=== PATIENT | female | born 1995 | race Caucasian/White ===

== ENCOUNTER 2016-08-22 14:37 | Emergency (ER) | payer OTHER, SELFPAY ==
[~2016-08-22 14:37] MED LIST: /AUGM875TA OR; /CELE20CA OR; /ONDA4TA OR; ACET65TA OR; COLA100C2 OR; NO HOME MEDS; PERC5TAB8 OR; PERC7.5T8 OR; ZOFR8TAB OR
--- NOTE | 2016-08-22 15:56 | EDDOCDS ---
Nurse's Notes [facility] Name: Amanda Lopez Age: 21 yrs Sex: Female : 1995 Arrival Date: 08/22/2016 Time: 14:37 Bed Triage 1 Private MD: NO PRIMARY PHYSICIAN, . Diagnosis: Acute pharyngitis-exudative Presentation: 08/22 14:48 Presenting complaint: Patient states: Pt presents with sore throat body aches x 4-3 dls days also her hands and feet are swelling and go numb. Risk factors: Stridor is not present. Drooling is not present. Shortness of breath is not present. Cellulitis is not present. Adult Sepsis Screening: The patient does not have new or worsening altered mentation. Patient's respiratory rate is less than 22. Systolic blood pressure is greater than 100. Patient has a qSOFA score of 0- Negative Sepsis Screen. Suicide/Homicide risk assessment- the patient denies having any suicidal and/or homicidal ideations and does not present with any other emotional, behavioral or mental health complaints. 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 Transition of care: patient was not received from another setting of care. 14:48 Acuity: MYKE Level 4 dls 14:48 Method Of Arrival: Walkin/Carried/Asstd dls Triage Assessment: 14:50 General: Appears in no apparent distress, well developed, well nourished, well groomed, dls Behavior is cooperative. Pain: Pain currently is 7 out of 10 on a pain scale. HIV screening NA for this visit Offered previously. 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 Mirena 20 mcg/24 hr (5 years) intrauterine IUD - PMHx: Hepatitis C; heroin abuse; - PSHx: right ankle; Appendectomy; - Social history: Smoking status: Patient uses tobacco products, light tobacco smoker. Patient uses No barriers to communication noted, The patient speaks fluent Georgian. - : The pt / caregiver states he / she is not on anticoagulants. Home medication list is obtained from the patient. - Exposure Risk Screening:: None identified. Vital Signs: 14:39 BP 131 / 70; Pulse 89; Resp 18 S; Temp 99.1(O); Pulse Ox 100% on R/A; Weight 61.23 kg dd6 (R); Height 5 ft. 3 in. (160.02 cm) (R); 14:39 Body Mass Index 23.91 (61.23 kg, 160.02 cm) dd6 Vitals: 14:39 Log In Time: August 22, 2016 at 14:37. dd6 15:50 Strep Screen is obtained and tested: Negative, a GATSNEG culture is ordered in [facility] and sent. ED Course: 14:39 Patient visited by Cedrick Banks PCA. dd6 14:39 NO PRIMARY PHYSICIAN, . is Private Physician. dd6 14:39 Patient moved to Waiting dd6 14:40 Patient moved to Pre RCE dd6 14:49 Triage Initiated dls 15:20 Anibal Abdul PA-C is PHCP. ar2 15:20 Chanel Bello MD is Attending Physician. ar2 15:36 Patient moved to Triage 1 ct3 15:37 Patient visited by Anibal Abdul PA-C. ar2 15:50 [facility] is Referral Physician. ar2 Order Results: There are currently no results for this order. Outcome: 15:50 Discharge ordered by Provider. ar2 15:55 Patient left the ED. [facility] Signatures: Mary Camacho RN RN kcs Sapna Stout RN RN dls Anibal Abdul PA-C PA-C ar2 Cedrick Banks, TELMA SURVEILLANCE SENSOR OFFICER dd6 Gloria Varghese, SURVEILLANCE SENSOR OFFICER SURVEILLANCE SENSOR OFFICER ct3 MTDD
--- NOTE | 2016-08-22 15:56 | EDDOCDS ---
Physician Documentation [facility] Name: Amanda Lopez Age: 21 yrs Sex: Female : 1995 Arrival Date: 08/22/2016 Time: 14:37 Bed Triage 1 Private MD: NO PRIMARY PHYSICIAN, . Disposition: 08/22/16 15:50 Discharged to Home/Self Care. Impression: Acute pharyngitis - exudative. - Condition is Stable. - Discharge Instructions: Pharyngitis, Salt Water Gargle. - Prescriptions for Ibuprofen 600 mg Oral Tablet - take 1 tablet by ORAL route every 6 hours As needed take with food; 30 tablet. Keflex 500 mg Oral Capsule - take 1 capsule by ORAL route every 12 hours for 10 days; 20 capsule. - Medication Reconciliation, Local Pharmacy Hours form. - Follow up: Emergency Department; When: As needed; Reason: Fever > 102F, Trouble breathing, Worsening of conditions. [facility]: [facility] ; When: Call to arrange an appointment; Reason: Recheck today's complaints, To establish care. - Problem is new. - Symptoms are unchanged. Historical: - Allergies: no known allergies; - Home Meds: 1. Mirena 20 mcg/24 hr (5 years) intrauterine IUD - PMHx: Hepatitis C; heroin abuse; - PSHx: right ankle; Appendectomy; - Social history: Smoking status: Patient uses tobacco products, light tobacco smoker. Patient uses No barriers to communication noted, The patient speaks fluent Maltese. - : The pt / caregiver states he / she is not on anticoagulants. Home medication list is obtained from the patient. - Exposure Risk Screening:: None identified. 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 3 in. (160.02 cm) (R); 14:39 Body Mass Index 23.91 (61.23 kg, 160.02 cm) dd6 MDM: 15:20 Strep Screen, Nursing ordered. ar2 15:50 GATS (NEGATIVE STREP SCREEN) Ordered. EDMS Signatures: Dispatcher [employer] EDSamm Thompsoncey, RN RN kcs Sapna Stout RN RN dls Anibal Abdul, RASHAAD PAMaxine ar2 IBISD
--- NOTE | 2016-08-24 16:56 | EDDOCDS ---
Nurse's Notes [facility] Name: Amanda Lopez Age: 21 yrs Sex: Female : 1995 Arrival Date: 08/22/2016 Time: 14:37 Bed Triage 1 Private MD: NO PRIMARY PHYSICIAN, . Diagnosis: Acute pharyngitis-exudative Presentation: 08/22 14:48 Presenting complaint: Patient states: Pt presents with sore throat body aches x 4-3 dls days also her hands and feet are swelling and go numb. Risk factors: Stridor is not present. Drooling is not present. Shortness of breath is not present. Cellulitis is not present. Adult Sepsis Screening: The patient does not have new or worsening altered mentation. Patient's respiratory rate is less than 22. Systolic blood pressure is greater than 100. Patient has a qSOFA score of 0- Negative Sepsis Screen. Suicide/Homicide risk assessment- the patient denies having any suicidal and/or homicidal ideations and does not present with any other emotional, behavioral or mental health complaints. Status: Patient is not a passenger service supervisor or dependent. Transition of care: patient was not received from another setting of care. 14:48 Acuity: MYKE Level 4 dls 14:48 Method Of Arrival: Walkin/Carried/Asstd dls Triage Assessment: 14:50 General: Appears in no apparent distress, well developed, well nourished, well groomed, dls Behavior is cooperative. Pain: Pain currently is 7 out of 10 on a pain scale. HIV screening NA for this visit Offered previously. 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 Mirena 20 mcg/24 hr (5 years) intrauterine IUD - PMHx: Hepatitis C; heroin abuse; - PSHx: right ankle; Appendectomy; - Social history: Smoking status: Patient uses tobacco products, light tobacco smoker. Patient uses No barriers to communication noted, The patient speaks fluent Indonesian. - Family history: Not pertinent. - : The pt / caregiver states he / she is not on anticoagulants. Home medication list is obtained from the patient. - Exposure Risk Screening:: None identified. Screenin:50 Screening information is obtained from the patient. Fall risk: No risks identified. kcs Assistance ADL's: requires no assistance with activities of daily living. Abuse/DV Screen: The patient / caregiver reports he/she is: not in a situation that causes fear, pain or injury. Nutritional screening: No deficits noted. Advance Directives: Currently, there is no health care proxy. home support is adequate. Assessment: 15:50 Reassessment: Patient states symptoms have not improved. No drooling, no stridor. kcs General: Appears comfortable, well developed, well nourished, well groomed, Behavior is cooperative, pleasant. Pain: Location: throat. Neurological: Level of Consciousness is awake, alert. Respiratory: Airway is patent Respiratory effort is even, unlabored, Respiratory pattern is regular, symmetrical. Derm: Skin is intact, is healthy with good turgor, Skin is dry, Skin is normal. Vital Signs: 14:39 BP 131 / 70; Pulse 89; Resp 18 S; Temp 99.1(O); Pulse Ox 100% on R/A; Weight 61.23 kg dd6 (R); Height 5 ft. 3 in. (160.02 cm) (R); 14:39 Body Mass Index 23.91 (61.23 kg, 160.02 cm) dd6 Vitals: 14:39 Log In Time: August 22, 2016 at 14:37. dd6 15:50 Strep Screen is obtained and tested: Negative, a GATSNEG culture is ordered in [facility] and sent. ED Course: 14:39 Patient visited by Cedrick Banks PCA. dd6 14:39 NO PRIMARY PHYSICIAN, . is Private Physician. dd6 14:39 Patient moved to Waiting dd6 14:40 Patient moved to Pre RCE dd6 14:49 Triage Initiated dls 15:20 Anibal Abdul PA-C is PHCP. ar2 15:20 Chanel Bello MD is Attending Physician. ar2 15:36 Patient moved to Triage 1 ct3 15:37 Patient visited by Anibal Abdul PA-C. ar2 15:50 [facility] is Referral Physician. ar2 15:50 The patient / caregiver is instructed regarding the plan of care and ED course. kcs 15:50 No IV's were initiated during this patient's visit. No procedures done that require kcs assistance. 16:12 [facility] Payment Agreement was scanned into [employer] and attached to record. jimenez 08/23 06:09 T-Sheet-- Draft Copy was scanned into [employer] and attached to record. brittany Order Results: Lab Order: GATS (NEGATIVE STREP SCREEN); SPEC'M 08/22/16 15:45 Test: GATS CULTURE (NEG STREP SCR); Value: GATS RESULT NEGATIVE FOR STREP PYOGENES (GROUP A); Status: F Test: GATS CULTURE (NEG STREP SCR); Value: ORGANISM 1: STREP AGALACTIAE GROUP B; Status: F Test: GATS CULTURE (NEG STREP SCR); Value: STREP AGALACTIAE GROUP B; Status: F Test: GATS CULTURE (NEG STREP SCR); Value: QUANTITY OF GROWTH MODERATE; Status: F Outcome: 08/22 15:50 Discharge ordered by Provider. ar2 15:50 Discharge Assessment: Patient awake, alert and oriented x 3. No cognitive and/or kcs functional deficits noted. Patient verbalized understanding of disposition instructions. Patient awake and alert. patient administered narcotics - no. The following High Risk Discharge criteria are identified: None. Discharged to home ambulatory. Condition: stable. Discharge instructions given to patient, Instructed on discharge instructions, follow up and referral plans. medication usage, Demonstrated understanding of instructions, medications, Pt was receptive of discharge instructions/ teaching. No special radiology studies were completed. Property sent home with patient. 15:55 Patient left the ED. kcs Signatures: Mary Camacho, RN RN Sapna Browning RN RN Anibal Marino, PA-C PA-Jovani ar2 Cedrick Banks, MANAGER DEPARTMENT MANAGER DEPARTMENT dd6 Gloria Varghese, MANAGER DEPARTMENT MANAGER DEPARTMENT ct3 Viviana Deleon Gabriela gjb Chart Complete MTDD
--- NOTE | 2016-08-24 16:56 | EDDOCDS ---
Physician Documentation [facility] Name: Amanda Lopez Age: 21 yrs Sex: Female : 1995 Arrival Date: 08/22/2016 Time: 14:37 Bed Triage 1 Private MD: NO PRIMARY PHYSICIAN, . Disposition: 08/22/16 15:50 Discharged to Home/Self Care. Impression: Acute pharyngitis - exudative. - Condition is Stable. - Discharge Instructions: Pharyngitis, Salt Water Gargle. - Prescriptions for Ibuprofen 600 mg Oral Tablet - take 1 tablet by ORAL route every 6 hours As needed take with food; 30 tablet. Keflex 500 mg Oral Capsule - take 1 capsule by ORAL route every 12 hours for 10 days; 20 capsule. - Medication Reconciliation, Local Pharmacy Hours form. - Follow up: Emergency Department; When: As needed; Reason: Fever > 102F, Trouble breathing, Worsening of conditions. Follow [facility]: [facility] ; When: Call to arrange an appointment; Reason: Recheck today's complaints, To establish care. - Problem is new. - Symptoms are unchanged. Historical: - Allergies: no known allergies; - Home Meds: 1. Mirena 20 mcg/24 hr (5 years) intrauterine IUD - PMHx: Hepatitis C; heroin abuse; - PSHx: right ankle; Appendectomy; - Social history: Smoking status: Patient uses tobacco products, light tobacco smoker. Patient uses No barriers to communication noted, The patient speaks fluent Bengali. - Family history: Not pertinent. - : The pt / caregiver states he / she is not on anticoagulants. Home medication list is obtained from the patient. - Exposure Risk Screening:: None identified. 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 3 in. (160.02 cm) (R); 14:39 Body Mass Index 23.91 (61.23 kg, 160.02 cm) dd6 MDM: 15:20 Strep Screen, Nursing ordered. ar2 15:50 GATS (NEGATIVE STREP SCREEN) Ordered. EDMS 16:12 [facility] Payment Agreement was scanned into [employer] and attached to record. gjb 16:12 Financial registration complete. gjb 08/23 06:09 T-Sheet-- Draft Copy was scanned into [employer] and attached to record. brittany Signatures: Dispatcher [employer] Mary Jimenez RN RN kcs Scott, Debra, RN RN dls Robertshaw, Aaron, PA-C PA-C ar2 Arel, Amelia Beckett The chart was reviewed and I authenticate all verbal orders and agree with the evaluation and treatment provided.Attachments: 08/22 16:12 [facility] Payment Agreement gjb 08/23 06:09 T-Sheet-- Draft Copy brittany Chart Complete MTDD
--- NOTE | 2016-08-24 16:56 | EDDOCDS ---
Physician Documentation [facility] Name: Amanda Lopez Age: 21 yrs Sex: Female : 1995 Arrival Date: 08/22/2016 Time: 14:37 Bed Triage 1 Private MD: NO PRIMARY PHYSICIAN, . Disposition: 08/22/16 15:50 Discharged to Home/Self Care. Impression: Acute pharyngitis - exudative. - Condition is Stable. - Discharge Instructions: Pharyngitis, Salt Water Gargle. - Prescriptions for Ibuprofen 600 mg Oral Tablet - take 1 tablet by ORAL route every 6 hours As needed take with food; 30 tablet. Keflex 500 mg Oral Capsule - take 1 capsule by ORAL route every 12 hours for 10 days; 20 capsule. - Medication Reconciliation, Local Pharmacy Hours form. - Follow up: Emergency Department; When: As needed; Reason: Fever > 102F, Trouble breathing, Worsening of conditions. Follow [facility]: [facility] ; When: Call to arrange an appointment; Reason: Recheck today's complaints, To establish care. - Problem is new. - Symptoms are unchanged. Historical: - Allergies: no known allergies; - Home Meds: 1. Mirena 20 mcg/24 hr (5 years) intrauterine IUD - PMHx: Hepatitis C; heroin abuse; - PSHx: right ankle; Appendectomy; - Social history: Smoking status: Patient uses tobacco products, light tobacco smoker. Patient uses No barriers to communication noted, The patient speaks fluent Serbian. - Family history: Not pertinent. - : The pt / caregiver states he / she is not on anticoagulants. Home medication list is obtained from the patient. - Exposure Risk Screening:: None identified. 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 3 in. (160.02 cm) (R); 14:39 Body Mass Index 23.91 (61.23 kg, 160.02 cm) dd6 MDM: 15:20 Strep Screen, Nursing ordered. ar2 15:50 GATS (NEGATIVE STREP SCREEN) Ordered. EDMS 16:12 [facility] Payment Agreement was scanned into [employer] and attached to record. gjb 16:12 Financial registration complete. gjb 08/23 06:09 T-Sheet-- Draft Copy was scanned into [employer] and attached to record. brittany Signatures: Dispatcher [employer] Mary Jimenez RN RN kcs Scott, Debra, RN RN dls Robertshaw, Aaron, PA-C PA-C ar2 Arel, Amelia Beckett The chart was reviewed and I authenticate all verbal orders and agree with the evaluation and treatment provided.Attachments: 08/22 16:12 [facility] Payment Agreement gjb 08/23 06:09 T-Sheet-- Draft Copy brittany Chart Complete MTDD
--- NOTE | 2016-08-25 15:30 | EDDOCDS ---
Nurse's Notes [facility] Name: Amanda Lopez Age: 21 yrs Sex: Female : 1995 Arrival Date: 08/22/2016 Time: 14:37 Bed Triage 1 Private MD: NO PRIMARY PHYSICIAN, . Diagnosis: Acute pharyngitis-exudative Presentation: 08/22 14:48 Presenting complaint: Patient states: Pt presents with sore throat body aches x 4-3 dls days also her hands and feet are swelling and go numb. Risk factors: Stridor is not present. Drooling is not present. Shortness of breath is not present. Cellulitis is not present. Adult Sepsis Screening: The patient does not have new or worsening altered mentation. Patient's respiratory rate is less than 22. Systolic blood pressure is greater than 100. Patient has a qSOFA score of 0- Negative Sepsis Screen. Suicide/Homicide risk assessment- the patient denies having any suicidal and/or homicidal ideations and does not present with any other emotional, behavioral or mental health complaints. 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 Transition of care: patient was not received from another setting of care. 14:48 Acuity: MYKE Level 4 dls 14:48 Method Of Arrival: Walkin/Carried/Asstd dls Triage Assessment: 14:50 General: Appears in no apparent distress, well developed, well nourished, well groomed, dls Behavior is cooperative. Pain: Pain currently is 7 out of 10 on a pain scale. HIV screening NA for this visit Offered previously. 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 Mirena 20 mcg/24 hr (5 years) intrauterine IUD - PMHx: Hepatitis C; heroin abuse; - PSHx: right ankle; Appendectomy; - Social history: Smoking status: Patient uses tobacco products, light tobacco smoker. Patient uses No barriers to communication noted, The patient speaks fluent Rwandan. - Family history: Not pertinent. - : The pt / caregiver states he / she is not on anticoagulants. Home medication list is obtained from the patient. - Exposure Risk Screening:: None identified. Screenin:50 Screening information is obtained from the patient. Fall risk: No risks identified. kcs Assistance ADL's: requires no assistance with activities of daily living. Abuse/DV Screen: The patient / caregiver reports he/she is: not in a situation that causes fear, pain or injury. Nutritional screening: No deficits noted. Advance Directives: Currently, there is no health care proxy. home support is adequate. Assessment: 15:50 Reassessment: Patient states symptoms have not improved. No drooling, no stridor. kcs General: Appears comfortable, well developed, well nourished, well groomed, Behavior is cooperative, pleasant. Pain: Location: throat. Neurological: Level of Consciousness is awake, alert. Respiratory: Airway is patent Respiratory effort is even, unlabored, Respiratory pattern is regular, symmetrical. Derm: Skin is intact, is healthy with good turgor, Skin is dry, Skin is normal. Vital Signs: 14:39 BP 131 / 70; Pulse 89; Resp 18 S; Temp 99.1(O); Pulse Ox 100% on R/A; Weight 61.23 kg dd6 (R); Height 5 ft. 3 in. (160.02 cm) (R); 14:39 Body Mass Index 23.91 (61.23 kg, 160.02 cm) dd6 Vitals: 14:39 Log In Time: August 22, 2016 at 14:37. dd6 15:50 Strep Screen is obtained and tested: Negative, a GATSNEG culture is ordered in [facility] and sent. ED Course: 14:39 Patient visited by Cedrick Banks PCA. dd6 14:39 NO PRIMARY PHYSICIAN, . is Private Physician. dd6 14:39 Patient moved to Waiting dd6 14:40 Patient moved to Pre RCE dd6 14:49 Triage Initiated dls 15:20 Anibal Abdul PA-C is PHCP. ar2 15:20 Chanel Bello MD is Attending Physician. ar2 15:36 Patient moved to Triage 1 ct3 15:37 Patient visited by Anibal Abdul PA-C. ar2 15:50 [facility] is Referral Physician. ar2 15:50 The patient / caregiver is instructed regarding the plan of care and ED course. kcs 15:50 No IV's were initiated during this patient's visit. No procedures done that require kcs assistance. 16:12 [facility] [place] Agreement was scanned into [employer] and attached to record. jimenez 08/23 06:09 T-Sheet-- Draft Copy was scanned into [employer] and attached to record. brittany Order Results: Lab Order: GATS (NEGATIVE STREP SCREEN); SPEC'M 08/22/16 15:45 Test: GATS CULTURE (NEG STREP SCR); Value: GATS RESULT NEGATIVE FOR STREP PYOGENES (GROUP A); Status: F Test: GATS CULTURE (NEG STREP SCR); Value: ORGANISM 1: STREP AGALACTIAE GROUP B; Status: F Test: GATS CULTURE (NEG STREP SCR); Value: STREP AGALACTIAE GROUP B; Status: F Test: GATS CULTURE (NEG STREP SCR); Value: QUANTITY OF GROWTH MODERATE; Status: F Outcome: 08/22 15:50 Discharge ordered by Provider. ar2 15:50 Discharge Assessment: Patient awake, alert and oriented x 3. No cognitive and/or kcs functional deficits noted. Patient verbalized understanding of disposition instructions. Patient awake and alert. patient administered narcotics - no. The following High Risk Discharge criteria are identified: None. Discharged to home ambulatory. Condition: stable. Discharge instructions given to patient, Instructed on discharge instructions, follow up and referral plans. medication usage, Demonstrated understanding of instructions, medications, Pt was receptive of discharge instructions/ teaching. No special radiology studies were completed. Property sent home with patient. 15:55 Patient left the ED. kcs Addendum: 08/25/2016 15:28 Narrative: GATS culture results reviewed by NETTIE Rodriguez and no changes made. [facility] Signatures: Mary Camacho RN RN kcs Peters, Mary, RN RN mcp Scott, Debra, RN RN dls Robertshaw, Aaron, PA-C PA-Jovani ar2 Cedrick Banks, ROPER OPERATOR ROPER OPERATOR dd6 Gloria Varghese, ROPER OPERATOR ROPER OPERATOR ct3 Arepedro, Amelia Beckett MTDD
--- NOTE | 2016-08-25 15:30 | EDDOCDS ---
Physician Documentation [facility] Name: Amanda Lopez Age: 21 yrs Sex: Female : 1995 Arrival Date: 08/22/2016 Time: 14:37 Bed Triage 1 Private MD: NO PRIMARY PHYSICIAN, . Disposition: 08/22/16 15:50 Discharged to Home/Self Care. Impression: Acute pharyngitis - exudative. - Condition is Stable. - Discharge Instructions: Pharyngitis, Salt Water Gargle. - Prescriptions for Ibuprofen 600 mg Oral Tablet - take 1 tablet by ORAL route every 6 hours As needed take with food; 30 tablet. Keflex 500 mg Oral Capsule - take 1 capsule by ORAL route every 12 hours for 10 days; 20 capsule. - Medication Reconciliation, Local Pharmacy Hours form. - Follow up: Emergency Department; When: As needed; Reason: Fever > 102F, Trouble breathing, Worsening of conditions. [facility]: [facility] ; When: Call to arrange an appointment; Reason: Recheck today's complaints, To establish care. - Problem is new. - Symptoms are unchanged. Historical: - Allergies: no known allergies; - Home Meds: 1. Mirena 20 mcg/24 hr (5 years) intrauterine IUD - PMHx: Hepatitis C; heroin abuse; - PSHx: right ankle; Appendectomy; - Social history: Smoking status: Patient uses tobacco products, light tobacco smoker. Patient uses No barriers to communication noted, The patient speaks fluent Bengali. - Family history: Not pertinent. - : The pt / caregiver states he / she is not on anticoagulants. Home medication list is obtained from the patient. - Exposure Risk Screening:: None identified. 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 3 in. (160.02 cm) (R); 14:39 Body Mass Index 23.91 (61.23 kg, 160.02 cm) dd6 MDM: 15:20 Strep Screen, Nursing ordered. ar2 15:50 GATS (NEGATIVE STREP SCREEN) Ordered. EDMS 16:12 [facility] Payment Agreement was scanned into [employer] and attached to record. gjb 16:12 Financial registration complete. gjb 08/23 06:09 T-Sheet-- Draft Copy was scanned into [employer] and attached to record. brittany Signatures: Dispatcher [employer] Mary Jimenez RN RN kcs Scott, Debra, RN RN dls Robertshaw, Aaron, PA-C PA-C ar2 Arel, Amelia Beckett The chart was reviewed and I authenticate all verbal orders and agree with the evaluation and treatment provided.Attachments: 08/22 16:12 [facility] INCLUDES THE [facility] Payment Agreement gjb 08/23 06:09 T-Sheet-- Draft Copy brittany MTDD
--- NOTE | 2016-08-25 15:30 | EDDOCDS ---
Physician Documentation [facility] Name: Amanda Lopez Age: 21 yrs Sex: Female : 1995 Arrival Date: 08/22/2016 Time: 14:37 Bed Triage 1 Private MD: NO PRIMARY PHYSICIAN, . Disposition: 08/22/16 15:50 Discharged to Home/Self Care. Impression: Acute pharyngitis - exudative. - Condition is Stable. - Discharge Instructions: Pharyngitis, Salt Water Gargle. - Prescriptions for Ibuprofen 600 mg Oral Tablet - take 1 tablet by ORAL route every 6 hours As needed take with food; 30 tablet. Keflex 500 mg Oral Capsule - take 1 capsule by ORAL route every 12 hours for 10 days; 20 capsule. - Medication Reconciliation, Local Pharmacy Hours form. - Follow up: Emergency Department; When: As needed; Reason: Fever > 102F, Trouble breathing, Worsening of conditions. [facility]: [facility] ; When: Call to arrange an appointment; Reason: Recheck today's complaints, To establish care. - Problem is new. - Symptoms are unchanged. Historical: - Allergies: no known allergies; - Home Meds: 1. Mirena 20 mcg/24 hr (5 years) intrauterine IUD - PMHx: Hepatitis C; heroin abuse; - PSHx: right ankle; Appendectomy; - Social history: Smoking status: Patient uses tobacco products, light tobacco smoker. Patient uses No barriers to communication noted, The patient speaks fluent Czech. - Family history: Not pertinent. - : The pt / caregiver states he / she is not on anticoagulants. Home medication list is obtained from the patient. - Exposure Risk Screening:: None identified. 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 3 in. (160.02 cm) (R); 14:39 Body Mass Index 23.91 (61.23 kg, 160.02 cm) dd6 MDM: 15:20 Strep Screen, Nursing ordered. ar2 15:50 GATS (NEGATIVE STREP SCREEN) Ordered. EDMS 16:12 [facility] Payment Agreement was scanned into [employer] and attached to record. gjb 16:12 Financial registration complete. gjb 08/23 06:09 T-Sheet-- Draft Copy was scanned into [employer] and attached to record. brittany Signatures: Dispatcher [employer] Mary Jimenez RN RN kcs Scott, Debra, RN RN dls Robertshaw, Aaron, PA-C PA-C ar2 Arel, Amelia Beckett The chart was reviewed and I authenticate all verbal orders and agree with the evaluation and treatment provided.Attachments: 08/22 16:12 [facility] Payment Agreement gjb 08/23 06:09 T-Sheet-- Draft Copy brittany MTDD
--- NOTE | 2016-08-25 15:32 | EDDOCDS ---
Nurse's Notes [facility] Name: Amanda Lopez Age: 21 yrs Sex: Female : 1995 Arrival Date: 08/22/2016 Time: 14:37 Bed Triage 1 Private MD: NO PRIMARY PHYSICIAN, . Diagnosis: Acute pharyngitis-exudative Presentation: 08/22 14:48 Presenting complaint: Patient states: Pt presents with sore throat body aches x 4-3 dls days also her hands and feet are swelling and go numb. Risk factors: Stridor is not present. Drooling is not present. Shortness of breath is not present. Cellulitis is not present. Adult Sepsis Screening: The patient does not have new or worsening altered mentation. Patient's respiratory rate is less than 22. Systolic blood pressure is greater than 100. Patient has a qSOFA score of 0- Negative Sepsis Screen. Suicide/Homicide risk assessment- the patient denies having any suicidal and/or homicidal ideations and does not present with any other emotional, behavioral or mental health complaints. Status: Patient is not a director of in service education or dependent. Transition of care: patient was not received from another setting of care. 14:48 Acuity: MYKE Level 4 dls 14:48 Method Of Arrival: Walkin/Carried/Asstd dls Triage Assessment: 14:50 General: Appears in no apparent distress, well developed, well nourished, well groomed, dls Behavior is cooperative. Pain: Pain currently is 7 out of 10 on a pain scale. HIV screening NA for this visit Offered previously. 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 Mirena 20 mcg/24 hr (5 years) intrauterine IUD - PMHx: Hepatitis C; heroin abuse; - PSHx: right ankle; Appendectomy; - Social history: Smoking status: Patient uses tobacco products, light tobacco smoker. Patient uses No barriers to communication noted, The patient speaks fluent Haitian. - Family history: Not pertinent. - : The pt / caregiver states he / she is not on anticoagulants. Home medication list is obtained from the patient. - Exposure Risk Screening:: None identified. Screenin:50 Screening information is obtained from the patient. Fall risk: No risks identified. kcs Assistance ADL's: requires no assistance with activities of daily living. Abuse/DV Screen: The patient / caregiver reports he/she is: not in a situation that causes fear, pain or injury. Nutritional screening: No deficits noted. Advance Directives: Currently, there is no health care proxy. home support is adequate. Assessment: 15:50 Reassessment: Patient states symptoms have not improved. No drooling, no stridor. kcs General: Appears comfortable, well developed, well nourished, well groomed, Behavior is cooperative, pleasant. Pain: Location: throat. Neurological: Level of Consciousness is awake, alert. Respiratory: Airway is patent Respiratory effort is even, unlabored, Respiratory pattern is regular, symmetrical. Derm: Skin is intact, is healthy with good turgor, Skin is dry, Skin is normal. Vital Signs: 14:39 BP 131 / 70; Pulse 89; Resp 18 S; Temp 99.1(O); Pulse Ox 100% on R/A; Weight 61.23 kg dd6 (R); Height 5 ft. 3 in. (160.02 cm) (R); 14:39 Body Mass Index 23.91 (61.23 kg, 160.02 cm) dd6 Vitals: 14:39 Log In Time: August 22, 2016 at 14:37. dd6 15:50 Strep Screen is obtained and tested: Negative, a GATSNEG culture is ordered in [facility] and sent. ED Course: 14:39 Patient visited by Cedrick Banks PCA. dd6 14:39 NO PRIMARY PHYSICIAN, . is Private Physician. dd6 14:39 Patient moved to Waiting dd6 14:40 Patient moved to Pre RCE dd6 14:49 Triage Initiated dls 15:20 Anibal Abdul PA-C is PHCP. ar2 15:20 Chanel Bello MD is Attending Physician. ar2 15:36 Patient moved to Triage 1 ct3 15:37 Patient visited by Anibal Abdul PA-C. ar2 15:50 [facility] is Referral Physician. ar2 15:50 The patient / caregiver is instructed regarding the plan of care and ED course. kcs 15:50 No IV's were initiated during this patient's visit. No procedures done that require kcs assistance. 16:12 [facility] Payment Agreement was scanned into [employer] and attached to record. jimenez 08/23 06:09 T-Sheet-- Draft Copy was scanned into [employer] and attached to record. brittany Order Results: Lab Order: GATS (NEGATIVE STREP SCREEN); SPEC'M 08/22/16 15:45 Test: GATS CULTURE (NEG STREP SCR); Value: GATS RESULT NEGATIVE FOR STREP PYOGENES (GROUP A); Status: F Test: GATS CULTURE (NEG STREP SCR); Value: ORGANISM 1: STREP AGALACTIAE GROUP B; Status: F Test: GATS CULTURE (NEG STREP SCR); Value: STREP AGALACTIAE GROUP B; Status: F Test: GATS CULTURE (NEG STREP SCR); Value: QUANTITY OF GROWTH MODERATE; Status: F Outcome: 08/22 15:50 Discharge ordered by Provider. ar2 15:50 Discharge Assessment: Patient awake, alert and oriented x 3. No cognitive and/or kcs functional deficits noted. Patient verbalized understanding of disposition instructions. Patient awake and alert. patient administered narcotics - no. The following High Risk Discharge criteria are identified: None. Discharged to home ambulatory. Condition: stable. Discharge instructions given to patient, Instructed on discharge instructions, follow up and referral plans. medication usage, Demonstrated understanding of instructions, medications, Pt was receptive of discharge instructions/ teaching. No special radiology studies were completed. Property sent home with patient. 15:55 Patient left the ED. kcs Addendum: 08/25/2016 15:28 Narrative: GATS culture results reviewed by NETTIE Rodriguez and no changes made. [facility] Signatures: Mary Camacho RN RN kcs Peters, Mary, RN RN mcp Scott, Debra, RN RN dls Robertshaw, Aaron, PA-C PA-Jovani ar2 Cedrick Banks, TRY OUT PERSON TRY OUT PERSON dd6 Gloria Varghese, TRY OUT PERSON TRY OUT PERSON ct3 Arepedro, Amelia Beckett Chart Complete MTDD
--- NOTE | 2016-08-25 15:32 | EDDOCDS ---
Physician Documentation [facility] Name: Amanda Lopez Age: 21 yrs Sex: Female : 1995 Arrival Date: 08/22/2016 Time: 14:37 Bed Triage 1 Private MD: NO PRIMARY PHYSICIAN, . Disposition: 08/22/16 15:50 Discharged to Home/Self Care. Impression: Acute pharyngitis - exudative. - Condition is Stable. - Discharge Instructions: Pharyngitis, Salt Water Gargle. - Prescriptions for Ibuprofen 600 mg Oral Tablet - take 1 tablet by ORAL route every 6 hours As needed take with food; 30 tablet. Keflex 500 mg Oral Capsule - take 1 capsule by ORAL route every 12 hours for 10 days; 20 capsule. - Medication Reconciliation, Local Pharmacy Hours form. - Follow up: Emergency Department; When: As needed; Reason: Fever > 102F, Trouble breathing, Worsening of conditions. [facility]: [facility] ; When: Call to arrange an appointment; Reason: Recheck today's complaints, To establish care. - Problem is new. - Symptoms are unchanged. Historical: - Allergies: no known allergies; - Home Meds: 1. Mirena 20 mcg/24 hr (5 years) intrauterine IUD - PMHx: Hepatitis C; heroin abuse; - PSHx: right ankle; Appendectomy; - Social history: Smoking status: Patient uses tobacco products, light tobacco smoker. Patient uses No barriers to communication noted, The patient speaks fluent Lithuanian. - Family history: Not pertinent. - : The pt / caregiver states he / she is not on anticoagulants. Home medication list is obtained from the patient. - Exposure Risk Screening:: None identified. 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 3 in. (160.02 cm) (R); 14:39 Body Mass Index 23.91 (61.23 kg, 160.02 cm) dd6 MDM: 15:20 Strep Screen, Nursing ordered. ar2 15:50 GATS (NEGATIVE STREP SCREEN) Ordered. EDMS 16:12 [facility] Payment Agreement was scanned into [employer] and attached to record. gjb 16:12 Financial registration complete. gjb 08/23 06:09 T-Sheet-- Draft Copy was scanned into [employer] and attached to record. brittany Signatures: Dispatcher [employer] Mary Jimenez RN RN kcs Scott, Debra, RN RN dls Robertshaw, Aaron, PA-C PA-C ar2 Arel, Amelia Beckett The chart was reviewed and I authenticate all verbal orders and agree with the evaluation and treatment provided.Attachments: 08/22 16:12 [facility] Payment Agreement gjb 08/23 06:09 T-Sheet-- Draft Copy brittany Chart Complete MTDD
--- NOTE | 2016-08-25 15:32 | EDDOCDS ---
Physician Documentation [facility] Name: Amanda Lopez Age: 21 yrs Sex: Female : 1995 Arrival Date: 08/22/2016 Time: 14:37 Bed Triage 1 Private MD: NO PRIMARY PHYSICIAN, . Disposition: 08/22/16 15:50 Discharged to Home/Self Care. Impression: Acute pharyngitis - exudative. - Condition is Stable. - Discharge Instructions: Pharyngitis, Salt Water Gargle. - Prescriptions for Ibuprofen 600 mg Oral Tablet - take 1 tablet by ORAL route every 6 hours As needed take with food; 30 tablet. Keflex 500 mg Oral Capsule - take 1 capsule by ORAL route every 12 hours for 10 days; 20 capsule. - Medication Reconciliation, Local Pharmacy Hours form. - Follow up: Emergency Department; When: As needed; Reason: Fever > 102F, Trouble breathing, Worsening of conditions. [facility]: [facility] ; When: Call to arrange an appointment; Reason: Recheck today's complaints, To establish care. - Problem is new. - Symptoms are unchanged. Historical: - Allergies: no known allergies; - Home Meds: 1. Mirena 20 mcg/24 hr (5 years) intrauterine IUD - PMHx: Hepatitis C; heroin abuse; - PSHx: right ankle; Appendectomy; - Social history: Smoking status: Patient uses tobacco products, light tobacco smoker. Patient uses No barriers to communication noted, The patient speaks fluent Spanish. - Family history: Not pertinent. - : The pt / caregiver states he / she is not on anticoagulants. Home medication list is obtained from the patient. - Exposure Risk Screening:: None identified. 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 3 in. (160.02 cm) (R); 14:39 Body Mass Index 23.91 (61.23 kg, 160.02 cm) dd6 MDM: 15:20 Strep Screen, Nursing ordered. ar2 15:50 GATS (NEGATIVE STREP SCREEN) Ordered. EDMS 16:12 [facility] Payment Agreement was scanned into [employer] and attached to record. gjb 16:12 Financial registration complete. gjb 08/23 06:09 T-Sheet-- Draft Copy was scanned into [employer] and attached to record. brittany Signatures: Dispatcher [employer] Mary Jimenez RN RN kcs Scott, Debra, RN RN dls Robertshaw, Aaron, PA-C PA-C ar2 Arel, Amelia Beckett The chart was reviewed and I authenticate all verbal orders and agree with the evaluation and treatment provided.Attachments: 08/22 16:12 [facility] Payment Agreement gjb 08/23 06:09 T-Sheet-- Draft Copy brittany Chart Complete MTDD
--- NOTE | 2016-08-25 17:19 | EDDOCDS ---
Nurse's Notes [facility] Name: Amanda Lopez Age: 21 yrs Sex: Female : 1995 Arrival Date: 08/22/2016 Time: 14:37 Bed Triage 1 Private MD: NO PRIMARY PHYSICIAN, . Diagnosis: Acute pharyngitis-exudative Presentation: 08/22 14:48 Presenting complaint: Patient states: Pt presents with sore throat body aches x 4-3 dls days also her hands and feet are swelling and go numb. Risk factors: Stridor is not present. Drooling is not present. Shortness of breath is not present. Cellulitis is not present. Adult Sepsis Screening: The patient does not have new or worsening altered mentation. Patient's respiratory rate is less than 22. Systolic blood pressure is greater than 100. Patient has a qSOFA score of 0- Negative Sepsis Screen. Suicide/Homicide risk assessment- the patient denies having any suicidal and/or homicidal ideations and does not present with any other emotional, behavioral or mental health complaints. Status: Patient is not a director pharmacy services or dependent. Transition of care: patient was not received from another setting of care. 14:48 Acuity: MYKE Level 4 dls 14:48 Method Of Arrival: Walkin/Carried/Asstd dls Triage Assessment: 14:50 General: Appears in no apparent distress, well developed, well nourished, well groomed, dls Behavior is cooperative. Pain: Pain currently is 7 out of 10 on a pain scale. HIV screening NA for this visit Offered previously. 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 Mirena 20 mcg/24 hr (5 years) intrauterine IUD - PMHx: Hepatitis C; heroin abuse; - PSHx: right ankle; Appendectomy; - Social history: Smoking status: Patient uses tobacco products, light tobacco smoker. Patient uses No barriers to communication noted, The patient speaks fluent Eritrean. - Family history: Not pertinent. - : The pt / caregiver states he / she is not on anticoagulants. Home medication list is obtained from the patient. - Exposure Risk Screening:: None identified. Screenin:50 Screening information is obtained from the patient. Fall risk: No risks identified. kcs Assistance ADL's: requires no assistance with activities of daily living. Abuse/DV Screen: The patient / caregiver reports he/she is: not in a situation that causes fear, pain or injury. Nutritional screening: No deficits noted. Advance Directives: Currently, there is no health care proxy. home support is adequate. Assessment: 15:50 Reassessment: Patient states symptoms have not improved. No drooling, no stridor. kcs General: Appears comfortable, well developed, well nourished, well groomed, Behavior is cooperative, pleasant. Pain: Location: throat. Neurological: Level of Consciousness is awake, alert. Respiratory: Airway is patent Respiratory effort is even, unlabored, Respiratory pattern is regular, symmetrical. Derm: Skin is intact, is healthy with good turgor, Skin is dry, Skin is normal. Vital Signs: 14:39 BP 131 / 70; Pulse 89; Resp 18 S; Temp 99.1(O); Pulse Ox 100% on R/A; Weight 61.23 kg dd6 (R); Height 5 ft. 3 in. (160.02 cm) (R); 14:39 Body Mass Index 23.91 (61.23 kg, 160.02 cm) dd6 Vitals: 14:39 Log In Time: August 22, 2016 at 14:37. dd6 15:50 Strep Screen is obtained and tested: Negative, a GATSNEG culture is ordered in [facility] and sent. ED Course: 14:39 Patient visited by Cedrick Banks PCA. dd6 14:39 NO PRIMARY PHYSICIAN, . is Private Physician. dd6 14:39 Patient moved to Waiting dd6 14:40 Patient moved to Pre RCE dd6 14:49 Triage Initiated dls 15:20 Anibal Abdul PA-C is PHCP. ar2 15:20 Chanel Bello MD is Attending Physician. ar2 15:36 Patient moved to Triage 1 ct3 15:37 Patient visited by Anibal Abdul PA-C. ar2 15:50 [facility] is Referral Physician. ar2 15:50 The patient / caregiver is instructed regarding the plan of care and ED course. kcs 15:50 No IV's were initiated during this patient's visit. No procedures done that require kcs assistance. 16:12 [facility] Payment Agreement was scanned into [employer] and attached to record. jimenez 08/23 06:09 T-Sheet-- Draft Copy was scanned into [employer] and attached to record. brittany Order Results: Lab Order: GATS (NEGATIVE STREP SCREEN); SPEC'M 08/22/16 15:45 Test: GATS CULTURE (NEG STREP SCR); Value: GATS RESULT NEGATIVE FOR STREP PYOGENES (GROUP A); Status: F Test: GATS CULTURE (NEG STREP SCR); Value: ORGANISM 1: STREP AGALACTIAE GROUP B; Status: F Test: GATS CULTURE (NEG STREP SCR); Value: STREP AGALACTIAE GROUP B; Status: F Test: GATS CULTURE (NEG STREP SCR); Value: QUANTITY OF GROWTH MODERATE; Status: F Outcome: 08/22 15:50 Discharge ordered by Provider. ar2 15:50 Discharge Assessment: Patient awake, alert and oriented x 3. No cognitive and/or kcs functional deficits noted. Patient verbalized understanding of disposition instructions. Patient awake and alert. patient administered narcotics - no. The following High Risk Discharge criteria are identified: None. Discharged to home ambulatory. Condition: stable. Discharge instructions given to patient, Instructed on discharge instructions, follow up and referral plans. medication usage, Demonstrated understanding of instructions, medications, Pt was receptive of discharge instructions/ teaching. No special radiology studies were completed. Property sent home with patient. 15:55 Patient left the ED. kcs Addendum: 08/25/2016 15:28 Narrative: GATS culture results reviewed by NETTIE Rodriguez and no changes made. [facility] Signatures: Mary Camacho RN RN kcs Peters, Mary, RN RN mcp Scott, Debra, RN RN dls Robertshaw, Aaron, PA-C PA-Jovani ar2 Cedrick Banks, ORTHOPAEDIC SURGEON ORTHOPAEDIC SURGEON dd6 Gloria Varghese, ORTHOPAEDIC SURGEON ORTHOPAEDIC SURGEON ct3 Arepedro, Amelia Beckett Chart Complete MTDD
--- NOTE | 2016-08-25 17:19 | EDDOCDS ---
Physician Documentation [facility] Name: Amanda Lopez Age: 21 yrs Sex: Female : 1995 Arrival Date: 08/22/2016 Time: 14:37 Bed Triage 1 Private MD: NO PRIMARY PHYSICIAN, . Disposition: 08/22/16 15:50 Discharged to Home/Self Care. Impression: Acute pharyngitis - exudative. - Condition is Stable. - Discharge Instructions: Pharyngitis, Salt Water Gargle. - Prescriptions for Ibuprofen 600 mg Oral Tablet - take 1 tablet by ORAL route every 6 hours As needed take with food; 30 tablet. Keflex 500 mg Oral Capsule - take 1 capsule by ORAL route every 12 hours for 10 days; 20 capsule. - Medication Reconciliation, Local Pharmacy Hours form. - Follow up: Emergency Department; When: As needed; Reason: Fever > 102F, Trouble breathing, Worsening of conditions. [facility]: [facility] ; When: Call to arrange an appointment; Reason: Recheck today's complaints, To establish care. - Problem is new. - Symptoms are unchanged. Historical: - Allergies: no known allergies; - Home Meds: 1. Mirena 20 mcg/24 hr (5 years) intrauterine IUD - PMHx: Hepatitis C; heroin abuse; - PSHx: right ankle; Appendectomy; - Social history: Smoking status: Patient uses tobacco products, light tobacco smoker. Patient uses No barriers to communication noted, The patient speaks fluent Greenlandic. - Family history: Not pertinent. - : The pt / caregiver states he / she is not on anticoagulants. Home medication list is obtained from the patient. - Exposure Risk Screening:: None identified. 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 3 in. (160.02 cm) (R); 14:39 Body Mass Index 23.91 (61.23 kg, 160.02 cm) dd6 MDM: 15:20 Strep Screen, Nursing ordered. ar2 15:50 GATS (NEGATIVE STREP SCREEN) Ordered. EDMS 16:12 [facility] Payment Agreement was scanned into [employer] and attached to record. gjb 16:12 Financial registration complete. gjb 08/23 06:09 T-Sheet-- Draft Copy was scanned into [employer] and attached to record. brittany Signatures: Dispatcher [employer] Mary Jimenez RN RN kcs Scott, Debra, RN RN dls Robertshaw, Aaron, PA-C PA-C ar2 Arel, Amelia Beckett The chart was reviewed and I authenticate all verbal orders and agree with the evaluation and treatment provided.Attachments: 08/22 16:12 [facility] Payment Agreement gjb 08/23 06:09 T-Sheet-- Draft Copy brittany Chart Complete MTDD
--- NOTE | 2016-08-25 17:19 | EDDOCDS ---
Physician Documentation [facility] Name: Amanda Lopez Age: 21 yrs Sex: Female : 1995 Arrival Date: 08/22/2016 Time: 14:37 Bed Triage 1 Private MD: NO PRIMARY PHYSICIAN, . Disposition: 08/22/16 15:50 Discharged to Home/Self Care. Impression: Acute pharyngitis - exudative. - Condition is Stable. - Discharge Instructions: Pharyngitis, Salt Water Gargle. - Prescriptions for Ibuprofen 600 mg Oral Tablet - take 1 tablet by ORAL route every 6 hours As needed take with food; 30 tablet. Keflex 500 mg Oral Capsule - take 1 capsule by ORAL route every 12 hours for 10 days; 20 capsule. - Medication Reconciliation, Local Pharmacy Hours form. - Follow up: Emergency Department; When: As needed; Reason: Fever > 102F, Trouble breathing, Worsening of conditions. [facility]: [facility] ; When: Call to arrange an appointment; Reason: Recheck today's complaints, To establish care. - Problem is new. - Symptoms are unchanged. Historical: - Allergies: no known allergies; - Home Meds: 1. Mirena 20 mcg/24 hr (5 years) intrauterine IUD - PMHx: Hepatitis C; heroin abuse; - PSHx: right ankle; Appendectomy; - Social history: Smoking status: Patient uses tobacco products, light tobacco smoker. Patient uses No barriers to communication noted, The patient speaks fluent [place]. - Family history: Not pertinent. - : The pt / caregiver states he / she is not on anticoagulants. Home medication list is obtained from the patient. - Exposure Risk Screening:: None identified. 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 3 in. (160.02 cm) (R); 14:39 Body Mass Index 23.91 (61.23 kg, 160.02 cm) dd6 MDM: 15:20 Strep Screen, Nursing ordered. ar2 15:50 GATS (NEGATIVE STREP SCREEN) Ordered. EDMS 16:12 [facility] Payment Agreement was scanned into [employer] and attached to record. gjb 16:12 Financial registration complete. gjb 08/23 06:09 T-Sheet-- Draft Copy was scanned into [employer] and attached to record. brittany Signatures: Dispatcher [employer] Mary Jimenez RN RN kcs Scott, Debra, RN RN dls Robertshaw, Aaron, PA-C PA-C ar2 Arel, Amelia Beckett The chart was reviewed and I authenticate all verbal orders and agree with the evaluation and treatment provided.Attachments: 08/22 16:12 [facility] Payment Agreement gjb 08/23 06:09 T-Sheet-- Draft Copy brittany Chart Complete MTDD
== END 2016-08-22 15:55 | disposition home or self-care (01) ==
LOC: M ED 14:37
DX: J02.8 Acute pharyngitis due to other specified organisms (principal); B19.20 Unspecified viral hepatitis C without hepatic coma; F11.10 Opioid abuse, uncomplicated; Z90.89 Acquired absence of other organs; Z72.0 Tobacco use; Z79.3 Long term (current) use of hormonal contraceptives

== ENCOUNTER 2017-03-25 22:30 | Emergency (ER) | payer OTHER, SELFPAY ==
[~2017-03-25] VITALS: Ht 162.6 cm; Wt 52.2 kg
[2017-03-25 22:41] VITALS: BP 134/71
== END 2017-03-26 00:56 | disposition left against medical advice (07) ==
LOC: M ED 22:30
DX: Z71.1 Person with feared health complaint in whom no diagnosis is made (principal); Z53.21 Procedure and treatment not carried out due to patient leaving prior to being seen by health care provider

== ENCOUNTER 2017-07-14 20:31 | Emergency (ER) | payer OTHER ==
[~2017-07-14] VITALS: Ht 160 cm; Wt 59.1 kg
[2017-07-14 20:34] VITALS: BP 135/87
[2017-07-14] MEDS ORDERED: CLIN150C14 PO (22:22)
[2017-07-14] MEDS ORDERED: NORCO, ANEXSIA 5/325MG TABLET (HYDROcodone/ACETAMINOPHEN) PO ONE (22:30)
[2017-07-14] MEDS ORDERED: NORCO 5/325MG TABLET (BULK FOR ED) PO ONE (22:30)
== END 2017-07-14 22:36 | disposition home or self-care (01) ==
LOC: M ED 20:31
DX: K02.9 Dental caries, unspecified (principal); K08.89 Other specified disorders of teeth and supporting structures; K13.79 Other lesions of oral mucosa; F17.200 Nicotine dependence, unspecified, uncomplicated

== ENCOUNTER 2017-07-26 01:01 | Emergency (ER) | payer OTHER ==
[~2017-07-26] VITALS: Ht 162.6 cm; Wt 54.5 kg
[2017-07-26 01:01] VITALS: BP 145/88
[~2017-07-26 01:01] MED LIST changes: +CLIN150C14 PO
== END 2017-07-26 02:46 | disposition left against medical advice (07) ==
LOC: M ED 01:01
DX: Z53.21 Procedure and treatment not carried out due to patient leaving prior to being seen by health care provider (principal)

== ENCOUNTER 2017-07-30 21:35 | Emergency (ER) | payer OTHER ==
[~2017-07-30] VITALS: Ht 162.6 cm; Wt 54.5 kg
[2017-07-30] MEDS ORDERED: ADACEL/BOOSTRIX VACCINE (DIPHTH/PERTUSS/ACELL/TETANUS)0.5ML SYR (90715) IM ONE (22:15)
[2017-07-30 22:44] LABS: MEAN CORPUSCULAR HEMOGLOBIN 30.1 pg (27.0-33.0); MEAN CORPUSCULAR VOLUME 88.5 fl (80.0-96.0); PLATELET COUNT, AUTOMATED 311 10^3/uL (150-450); RED CELL DISTRIBUTION WIDTH 12.7 % (11.5-14.5)
[2017-07-30 23:00] LABS: CONTROL LINE HCG INT CTR LINE PRESENT
[2017-07-30 23:05] LABS: METHADONE URINE NEGATIVE (NEGATIVE)
[2017-07-30 23:16] LABS: ALBUMIN/GLOBULIN RATIO 0.87 (1.00-1.93); ALKALINE PHOSPHATASE 116 U/L (45-117); ALT/SGPT 47 U/L (12-78); ANION GAP 7 MEQ/L (8-16); AST/SGOT 43 U/L (7-37); BILIRUBIN,DIRECT 0.3 MG/DL (0.0-0.2); BILIRUBIN,TOTAL 0.9 MG/DL (0.2-1.0); BLOOD UREA NITROGEN 15 MG/DL (7-18); CALCIUM LEVEL 8.8 MG/DL (8.5-10.1); CARBON DIOXIDE LEVEL 27 MEQ/L (21-32); CHLORIDE LEVEL 105 MEQ/L (98-107); CREATININE FOR GFR 0.99 MG/DL (0.55-1.02); GLOMERULAR FILTRATION RATE > 60.0 (>60); GLUCOSE, FASTING 72 MG/DL (70-105); POTASSIUM SERUM 3.9 MEQ/L (3.5-5.1); SODIUM LEVEL 139 MEQ/L (136-145); TOTAL PROTEIN 8.6 GM/DL (6.4-8.2)
[2017-07-31 06:33] VITALS: BP 101/59
== END 2017-07-31 07:04 | disposition home or self-care (01) ==
LOC: M ED 21:35
DX: F19.10 Other psychoactive substance abuse, uncomplicated (principal); F69 Unspecified disorder of adult personality and behavior; F32.9 Major depressive disorder, single episode, unspecified; F17.200 Nicotine dependence, unspecified, uncomplicated

== ENCOUNTER 2017-09-06 23:55 | Emergency (ER) | payer OTHER ==
[2017-09-07 02:49] LABS: LACTIC ACID SEPSIS PROTOCOL 1.5 MMOL/L (0.4-2.0)
[2017-09-07 02:49] LABS: ALBUMIN 3.6 GM/DL (3.2-5.2); ALBUMIN/GLOBULIN RATIO 0.73 (1.00-1.93); ALKALINE PHOSPHATASE 109 U/L (45-117); ALT/SGPT 46 U/L (12-78); ANION GAP 7 MEQ/L (8-16); AST/SGOT 38 U/L (7-37); BILIRUBIN,DIRECT 0.1 MG/DL (0.0-0.2); BILIRUBIN,TOTAL 0.3 MG/DL (0.2-1.0); BLOOD UREA NITROGEN 11 MG/DL (7-18); CALCIUM LEVEL 8.8 MG/DL (8.5-10.1); CARBON DIOXIDE LEVEL 27 MEQ/L (21-32); CHLORIDE LEVEL 105 MEQ/L (98-107); CREATININE FOR GFR 0.98 MG/DL (0.55-1.02); GLOMERULAR FILTRATION RATE > 60.0 (>60); GLUCOSE, FASTING 116 MG/DL (70-105); LIPASE 154 U/L (73-393); POTASSIUM SERUM 4.1 MEQ/L (3.5-5.1); SODIUM LEVEL 139 MEQ/L (136-145); TOTAL PROTEIN 8.5 GM/DL (6.4-8.2)
[2017-09-07 02:53] LABS: BASO % 0.2 % (0.0-1.0); EOS % 0.3 % (0.0-3.0); HEMATOCRIT 39.9 % (36.0-47.0); HEMOGLOBIN 13.4 g/dl (12.0-16.0); IMMATURE GRANULOCYTE % 0.4 % (0-0); LYMPH # 2.5 10^3/uL (1.5-6.5); LYMPH % 24.1 % (24.0-44.0); MEAN CORPUSCULAR HEMOGLOBIN 29.8 pg (27.0-33.0); MEAN CORPUSCULAR HGB CONC 33.6 g/dl (32.0-36.5); MEAN CORPUSCULAR VOLUME 88.9 fl (80.0-96.0); MONO # 0.8 10^3/uL (0.0-0.8); MONO % 7.5 % (0.0-5.0); NEUTROPHILS # 7.1 10^3/uL (1.8-7.7); NEUTROPHILS % 67.5 % (36.0-66.0); PLATELET COUNT, AUTOMATED 353 10^3/uL (150-450); RED BLOOD COUNT 4.49 10^6/uL (4.00-5.40); RED CELL DISTRIBUTION WIDTH 13.1 % (11.5-14.5); WHITE BLOOD COUNT 10.5 10^3/uL (4.0-10.0)
[2017-09-07 02:57] LABS: CONTROL LINE UCG INT CTR LINE PRESENT; URINE PREG TEST NEGATIVE (NEGATIVE)
[2017-09-07 03:04] LABS: KETONE, URINE AUTO RFX TRACE mg/dL (NEGATIVE); LEUKOCYTE ESTERASE UR AUTO RFX 2+ (NEGATIVE); MUCUS, URINE RFX SMALL (NEGATIVE); NITRITE, URINE AUTO RFX POSITIVE (NEGATIVE); RBC, URINE AUTO RFX 4 /HPF (0-3); SQUAM EPITHELIAL CELL UR AURFX 9 /HPF (0-6)
[2017-09-07 03:05] LABS: WBC, URINE AUTO RFX 48 /HPF (0-3)
[2017-09-07 03:23] LABS: CONTROL LINE HCG INT CTR LINE PRESENT; HCG, SERUM QUALITATIVE POSITIVE (NEGATIVE)
[2017-09-07] MEDS: PANTOPRAZOLE 40MG INJ (PROTONIX) (C9113) IV (03:30)
[2017-09-07] MEDS: GI COCKTAIL 50ML BTL(HYOSCYAMINE/MAALOX/LIDOCAINE VISCOUS)(1:3:1) PO (03:30)
[2017-09-07 04:51] LABS: HCG, SERUM QUANTITATIVE < 1.0 MIU/ML
[2017-09-07 05:29] LABS: CHLAMYDIA DNA AMPLIFICATION NEGATIVE (NEGATIVE); GC DNA AMPLIFICATION NEGATIVE (NEGATIVE)
== END 2017-09-07 05:26 | disposition left against medical advice (07) ==
LOC: M ED 23:55
DX: N39.0 Urinary tract infection, site not specified (principal); R10.9 Unspecified abdominal pain; F17.210 Nicotine dependence, cigarettes, uncomplicated
CPT/HCPCS: C9113

== ENCOUNTER 2017-10-15 00:55 | Emergency (ER) | payer OTHER | END 2017-10-15 05:52 | disposition left against medical advice (07) | LOC: M ED 00:55 | DX: J00 Acute nasopharyngitis [common cold] (principal); Z53.21 Procedure and treatment not carried out due to patient leaving prior to being seen by health care provider ==

== ENCOUNTER 2018-01-01 02:30 | Emergency (ER) | payer OTHER ==
[2018-01-01] MEDS: AUGMENTIN 875 MG TAB PO (03:28)
== END 2018-01-01 03:30 | disposition home or self-care (01) ==
LOC: M ED 02:30
DX: J02.9 Acute pharyngitis, unspecified (principal); F17.200 Nicotine dependence, unspecified, uncomplicated
CPT/HCPCS: 99282

== ENCOUNTER 2018-02-22 04:42 | Emergency (ER) | payer OTHER ==
[2018-02-22 07:54] LABS: KETONE, URINE AUTO RFX NEGATIVE (NEGATIVE); MUCUS, URINE RFX LARGE (NEGATIVE); RBC, URINE AUTO RFX 2 /HPF (0-3); SPECIFIC GRAVITY UR AUTO RFX 1.023 (1.002-1.035); SQUAM EPITHELIAL CELL UR AURFX 3 /HPF (0-6)
[2018-02-22 07:55] LABS: LEUKOCYTE ESTERASE UR AUTO RFX 2+ (NEGATIVE); NITRITE, URINE AUTO RFX POSITIVE (NEGATIVE); WBC, URINE AUTO RFX 29 /HPF (0-3)
[2018-02-22] MEDS: CIPROFLOXACIN 500 MG TAB PO (09:11)
[2018-02-22] MEDS: metroNIDAZOLE (FLAGYL) 500 MG TAB PO (09:11)
[2018-02-22 09:44] LABS: CHLAMYDIA DNA AMPLIFICATION NEGATIVE (NEGATIVE); GC DNA AMPLIFICATION NEGATIVE (NEGATIVE)
== END 2018-02-22 09:18 | disposition home or self-care (01) ==
LOC: M ED 04:42
DX: N30.90 Cystitis, unspecified without hematuria (principal); N76.0 Acute vaginitis; T83.32XA Displacement of intrauterine contraceptive device, initial encounter; S62.346A Nondisplaced fracture of base of fifth metacarpal bone, right hand, initial encounter for closed fracture; W22.8XXA Striking against or struck by other objects, initial encounter; Y92.018 Other place in single-family (private) house as the place of occurrence of the external cause; F17.210 Nicotine dependence, cigarettes, uncomplicated; F19.10 Other psychoactive substance abuse, uncomplicated
CPT/HCPCS: 73130

== ENCOUNTER 2018-02-23 23:02 | Emergency (ER) | payer OTHER ==
[2018-02-24] MEDS: ALBUTEROL SULFATE 2.5 MG/0.5 ML INH NEB SOLN NEB (00:49)
== END 2018-02-24 01:34 | disposition home or self-care (01) ==
LOC: M ED 02-24 01:34
DX: E04.1 Nontoxic single thyroid nodule (principal); J06.9 Acute upper respiratory infection, unspecified; F19.10 Other psychoactive substance abuse, uncomplicated; Z72.0 Tobacco use
CPT/HCPCS: 71046

== ENCOUNTER → 2018-05-02 | Outpatient (REF) | payer OTHER ==
[2018-05-02 20:22] LABS: APPEARANCE, URINE HAZY (CLEAR); BACTERIA, URINE AUTO 2+ (NEGATIVE); BILIRUBIN, URINE AUTO NEGATIVE (NEGATIVE); BLOOD, URINE BLOOD 2+ (NEGATIVE); COLOR, URINE AMBER (YELLOW); GLUCOSE, URINE (UA) AUTO NEGATIVE (NEGATIVE); KETONE, URINE AUTO NEGATIVE (NEGATIVE); LEUKOCYTE ESTERASE, URINE AUTO 2+ (NEGATIVE); MUCUS, URINE LARGE (NEGATIVE); NITRITE, URINE AUTO POSITIVE (NEGATIVE); PROTEIN, URINE AUTO NEGATIVE (NEGATIVE); RBC, URINE AUTO 7 /HPF (0-3); SPECIFIC GRAVITY URINE AUTO 1.028 (1.002-1.035); SQUAMOUS EPITHELIAL CELL UR AU 2 /HPF (0-6); UROBILINOGEN, URINE AUTO 0.2 mg/dL (0.0-2.0); WBC, URINE AUTO TNTC /HPF (0-3)
[2018-05-02 23:17] LABS: CHLAMYDIA DNA AMPLIFICATION NEGATIVE (NEGATIVE); GC DNA AMPLIFICATION POSITIVE (NEGATIVE)
== END ==
LOC: M LAB REF 18:58
DX: N39.0 Urinary tract infection, site not specified (principal)
CPT/HCPCS: 81001

== ENCOUNTER 2018-08-04 15:04 | Emergency (ER) | payer OTHER ==
[2018-08-04 16:22] LABS: KETONE, URINE AUTO RFX TRACE mg/dL (NEGATIVE); MUCUS, URINE RFX SMALL (NEGATIVE); NITRITE, URINE AUTO RFX NEGATIVE (NEGATIVE); RBC, URINE AUTO RFX 1 /HPF (0-3); SQUAM EPITHELIAL CELL UR AURFX 3 /HPF (0-6)
[2018-08-04] MEDS: cloNIDine HCL 0.1 MG/24 HR PATCH TOP (16:22)
[2018-08-04 16:23] LABS: BASO % 0.5 % (0.0-1.0); EOS # 0.1 10^3/uL (0.0-0.50); EOS % 1.4 % (0.0-3.0); HEMATOCRIT 39.7 % (36.0-47.0); HEMOGLOBIN 13.3 g/dl (12.0-15.5); IMMATURE GRANULOCYTE % 0.5 % (0-3.0); LYMPH # 1.5 10^3/uL (1.5-6.5); LYMPH % 24.2 % (24.0-44.0); MEAN CORPUSCULAR HEMOGLOBIN 30.3 pg (27.0-33.0); MEAN CORPUSCULAR HGB CONC 33.5 g/dl (32.0-36.5); MEAN CORPUSCULAR VOLUME 90.4 fl (80.0-96.0); MONO # 0.4 10^3/uL (0.0-0.8); MONO % 6.8 % (0.0-5.0); NEUTROPHILS # 4.2 10^3/uL (1.8-7.7); NEUTROPHILS % 66.6 % (36.0-66.0); PLATELET COUNT, AUTOMATED 209 10^3/uL (150-450); RED BLOOD COUNT 4.39 10^6/uL (4.00-5.40); RED CELL DISTRIBUTION WIDTH 14.2 % (11.5-14.5); WHITE BLOOD COUNT 6.3 10^3/uL (4.0-10.0)
[2018-08-04 16:24] LABS: LEUKOCYTE ESTERASE UR AUTO RFX 2+ (NEGATIVE); WBC, URINE AUTO RFX 110 /HPF (0-3)
[2018-08-04 16:38] LABS: POS COUNT POS FLAG
[2018-08-04 16:40] LABS: AMPHETAMINES LEVEL URINE NEGATIVE (NEGATIVE); BARBITURATES URINE NEGATIVE (NEGATIVE); BENZODIAZEPINES URINE NEGATIVE (NEGATIVE); CANNABINOIDS URINE NEGATIVE (NEGATIVE); COCAINE METABOLITE URINE POSITIVE (NEGATIVE); METHADONE URINE NEGATIVE (NEGATIVE); OPIATES URINE POSITIVE (NEGATIVE); PHENCYCLIDINE URINE NEGATIVE (NEGATIVE)
[2018-08-04 17:40] LABS: ACETAMINOPHEN LEVEL < 2.0 UG/ML (10.0-30.0); ALBUMIN 3.5 GM/DL (3.2-5.2); ALBUMIN/GLOBULIN RATIO 0.81 (1.00-1.93); ALKALINE PHOSPHATASE 102 U/L (45-117); ALT/SGPT 50 U/L (12-78); ANION GAP 7 MEQ/L (8-16); AST/SGOT 42 U/L (7-37); BILIRUBIN,TOTAL 0.4 MG/DL (0.2-1.0); BLOOD UREA NITROGEN 12 MG/DL (7-18); CALCIUM LEVEL 8.5 MG/DL (8.5-10.1); CARBON DIOXIDE LEVEL 27 MEQ/L (21-32); CHLORIDE LEVEL 103 MEQ/L (98-107); CREATININE FOR GFR 0.74 MG/DL (0.55-1.30); GLOMERULAR FILTRATION RATE > 60.0 (>60); GLUCOSE, FASTING 83 MG/DL (70-100); POTASSIUM SERUM 3.8 MEQ/L (3.5-5.1); SALICYLATE LEVEL 2.1 MG/DL (5.0-30.0); SODIUM LEVEL 137 MEQ/L (136-145); TOTAL PROTEIN 7.8 GM/DL (6.4-8.2)
[2018-08-05] MEDS ORDERED: cloNIDine HCL 0.1 MG/24 HR PATCH TOP (09:00)
[2018-08-06 11:15] LABS: HEPATITIS B SURFACE ANTIGEN NEGATIVE (NEGATIVE)
[2018-08-06 11:42] LABS: HEPATITIS B CORE ANTIBODY IGM NEGATIVE (NEGATIVE)
[2018-08-06 11:45] LABS: HEPATITIS A ANTIBODY IGM NEGATIVE (NEGATIVE)
[2018-08-06 13:42] LABS: HEPATITIS C VIRUS ABY INDEX > 11.0 INDEX (<0.8)
[2018-08-09 10:16] LABS: HCV RNA NAA QUALITATIVE Positive (Negative)
== END 2018-08-04 18:03 | disposition home or self-care (01) ==
LOC: M ED 15:04
DX: N30.00 Acute cystitis without hematuria (principal); F11.23 Opioid dependence with withdrawal
CPT/HCPCS: 80053

== ENCOUNTER → 2018-11-15 | Outpatient (REF) | payer OTHER ==
[~2018-11-15] MED LIST changes: -/CELE20CA OR; -/ONDA4TA OR; +ADVI200T PO; +AUGM500T34 PO; +CELE1CAP4 OR; +CIPR-249 PO; +FLAG500T PO; +IBUP200T45 PO; +MACR100C43 PO; +ONDA-1 OR; +ONDA-227 OR; +PROAAER10 INH; +TYLE325T5 PO; +ZOFR4TAB14 PO; -ZOFR8TAB OR
[2018-11-15 21:44] LABS: CHLAMYDIA DNA AMPLIFICATION NEGATIVE (NEGATIVE); GC DNA AMPLIFICATION NEGATIVE (NEGATIVE)
== END ==
LOC: M LAB REF 17:20
PROVIDERS: ATTEND Physician Assistant Medical
DX: Z20.2 Contact with and (suspected) exposure to infections with a predominantly sexual mode of transmission (principal)

== ENCOUNTER 2018-12-13 05:10 | Emergency (ER) | payer OTHER ==
[~2018-12-13] VITALS: Ht 162.6 cm; Wt 54.5 kg
--- NOTE | 2018-12-13 09:08 | REP ---
PELVIC ULTRASOUND: Real-time sonographic evaluation of the pelvis performed utilizing transabdominal and endovaginal technique. Bladder measures 2.3 x 1.8 x 5.0 cm. Uterus measures 7.8 x 3.4 x 3.9 cm. Endometrial thickness is 2 mm. Small amount of fluid is seen in the cervical canal. Ovaries are normal in size and echotexture, right ovary measuring 3.4 x 2.0 x 2.1 cm and left ovary 3.3 x 2.0 x 2.9 cm. There is no adnexal mass. There is mild free fluid in the cul-de-sac. There is no torsion of either ovary, RI right ovary is 0.65 and left ovary 0.57. There is no sonographic evidence of tampon in the region of the vagina. IMPRESSION: Small amount of fluid in the cervix and cul-de-sac. No tampon is visualized sonographically. Electronically Signed by Christopher Woodard MD 12/13/2018 11:06 A
[2018-12-13 09:55] VITALS: BP 104/63
== END 2018-12-13 10:09 | disposition home or self-care (01) ==
LOC: M ED 05:10
DX: Z71.1 Person with feared health complaint in whom no diagnosis is made (principal); R05 Cough; F17.210 Nicotine dependence, cigarettes, uncomplicated; Z86.19 Personal history of other infectious and parasitic diseases